=== PATIENT | female | born 1980 | race Caucasian/White ===

== ENCOUNTER → 2017-01-11 | Outpatient (CLI) | payer OTHER ==
--- NOTE | ~2017-01-11 | MY11 ---
[facility] A Service of [facility] RADIOLOGY TEXT RESULTS PATIENT: ARIAN VALLECILLO [facility] 78 UNIT #: [id number] AGE: [address]: Shalini Chavez MD SEX: F ORDER DR: [id number] [place], [place] [address] [id number] MR#: [id number] Acc #: [id number] NAME: ARIAN VALLECILLO : 1980 SEX: F STUDY DATE/TIME: 01/11/2017 7:39 [facility] ROOM: STUDY DESCRIPTION: MY Mammogram Screening [facility] [place] Attending Physician: Shalini Chavez M.D. Referring Physician: Shalini Chavez M.D. Ordering Physician: Shalini Chavez M.D. Primary Care Physician: Shalini Chavez M.D. MEDICAL IMAGING REPORT This report is preliminary unless electronic signature is present EXAM Digital screening mammogram, 01/11/2017, [facility]. HISTORY 36-year-old woman positive family history, paternal aunt age 60, maternal grandmother age 75. Annual screen. COMPARISON STUDIES Baseline mammogram, 06/16/2012. TECHNIQUE Digital imaging of each breast was completed utilizing screening protocol. Review includes FDA-approved CAD device. FINDINGS Breast parenchyma is fatty replaced and stable. There is no interval occurring breast mass and no suspicious microcalcifications or architectural distortion. IMPRESSION Negative mammogram. Annual screening recommended. Patients over the age of 40 are entered into a reminder system with target due date for the next mammogram. A result letter will also be sent to the patient. BIRADS: 1 Negative Dictated by... Nilo Lu M.D. [facility] A Service of [facility] RADIOLOGY TEXT RESULTS PATIENT: ARIAN VALLECILLO [facility] 78 UNIT #: [id number] AGE: [address]: Shalini Chavez MD SEX: F ORDER DR: THIS IS AN ELECTRONICALLY VERIFIED REPORT Nilo Lu M.D. at 01/11/2017 10:10 AM SAIDA/franklin TD: 01/11/2017 09:52 JOB #: [id number] MEDICAL IMAGING REPORT Page 1 of 1 COPY
== END | disposition home or self-care (01) ==
LOC: CWCC 07:25
DX: Z12.31 Encounter for screening mammogram for malignant neoplasm of breast (principal); Z80.3 Family history of malignant neoplasm of breast
CPT/HCPCS: G0202